=== PATIENT | female | born 1980 | race Hispanic/Latino ===

== ENCOUNTER 2016-07-18 23:42 | Emergency (ER) | payer MEDICAID ==
[2016-07-18 23:51] VITALS: TEMP 98; O2SAT 99
[2016-07-19] MEDS ORDERED: DiphenhydrAMINE 50 mg/ml Inj IM STA (00:55)
--- NOTE | 2016-07-19 00:55 | ED PDOC ---
HPI: Psych/Substance Abuse Time Seen by Provider: 07/19/16 00:07 Chief Complaint (Nursing): Alcohol Ingestion Chief Complaint (Provider): Alcohol Intoxication ED Caveat: Intoxicated History Per: EMS History/Exam Limitations: intoxication Onset/Duration Of Symptoms: Hrs Current Symptoms Are (Timing): Still Present Modifying Factor(s): Alcohol Additional Complaint(s): Jennifer James is a 36 year old female, with no pertinent past medical history, who presents to the emergency department via EMS due to alcohol intoxication. Patient appears to have slurred speech, an unsteady gait, and is only oriented to her provider. Patient currently has no medical complaints; however, the HPI/ROS are limited due to alcohol intoxication. Of note, patient is well known to this provider and emergency department for multiple, prior visits in the past. PMD: none specified Past Medical History Reviewed: Historical Data, Nursing Documentation, Vital Signs Vital Signs: Last Vital Signs Temp 98 F 07/18/16 23:48 Pulse 88 07/18/16 23:48 Resp 18 07/18/16 23:48 BP 126/68 07/18/16 23:48 Pulse Ox 99 07/18/16 23:48 - Medical History PMH: No Chronic Diseases - Surgical History Surgical History: No Surg Hx - Family History Family History: States: No Known Family Hx - Social History Alcohol: Occasional - Home Medications Home Medications: Ambulatory Orders Medication Instructions Recorded Unobtainable 01/31/15 - Allergies Allergies/Adverse Reactions: Allergies Allergy/AdvReac Type Severity Reaction Status Date / Time No Known Allergies Allergy Verified 12/13/15 23:29 Review of Systems Review Of Systems: ROS cannot be obtained secondary to pt's inabilty to answer questions. (alcohol intoxication) Physical Exam - Reviewed Nursing Documentation Reviewed: Yes Vital Signs Reviewed: Yes - Physical Exam Appears: Positive for: No Acute Distress Head Exam: Positive for: ATRAUMATIC, NORMOCEPHALIC Skin: Positive for: Normal Color, Warm, Dry Eye Exam: Positive for: Normal appearance, EOMI Neck: Positive for: Normal, Painless ROM Cardiovascular/Chest: Positive for: Regular Rate, Rhythm. Negative for: Murmur Respiratory: Positive for: Normal Breath Sounds. Negative for: Respiratory Distress Gastrointestinal/Abdominal: Positive for: Normal Exam, Soft. Negative for: Tenderness Back: Positive for: Normal Inspection. Negative for: L CVA Tenderness, R CVA Tenderness Extremity: Positive for: Normal ROM. Negative for: Tenderness, Swelling Neurologic/Psych: Positive for: Alert, Gait (unsteady), Other (slurred speech). Negative for: Oriented (only to provider) - ECG O2 Sat by Pulse Oximetry: 99 (RA) Pulse Ox Interpretation: Normal - Critical Care Total Time (In Min): 30 Medical Decision Making Medical Decision Makin:07 Initial Impression: 36 year old female, alcohol intoxication Initial Plan: * Alcohol Serum * Accucheck * Urine Drug Screen * Urine * Ativan 2 mg IM * Benadryl 50 mg IM * Haldol 5 mg IM * ED Observation * 1:1 Observation 00:27 Patient will be placed within ED Observation secondary to alcohol intoxication. Pending clinical sobriety. See ED Observation note for further updates. 00:50 Patient presents a danger to both herself and emergency department staff due to aggressive behavior. Will place patient into 4 point restraints and administer Ativan 2 mg IM and Haldol 5mg IM for relief of acute agitation. 06:15 Upon provider reevaluation patient is awake, oriented (x3), has a steady gait and clear speech, is medically stable, and requires no further treatment in the emergency department at this time. Patient will be discharged home. Counseling was provided and all questions were answered regarding diagnosis. Patient is in agreement with provider's discharge plan. Clinical Impression: Alcohol intoxication Scribe Attestation: Documented by Patrick Ann, acting as a scribe for Isidro Matamoros MD. Provider Scribe Attestation: All medical record entries made by the Scribe were at my direction and personally dictated by me. I have reviewed the chart and agree that the record accurately reflects my personal performance of the history, physical exam, medical decision making, and the department course for this patient. I have also personally directed, reviewed, and agree with the discharge instructions and disposition. ED OBSERVATION Discharge: Yes Date of observation admission: 07/19/16 Time of observation admission: 00:27 - Observation admission statement Patient is being placed in observation because:: Alcohol intoxication. - Goals of Observation Goals of observation are:: Pending clinical sobriety. Disposition - Clinical Impression Clinical Impression: Alcohol abuse with intoxication - Disposition Disposition: Routine/Home Disposition Time: 00:27 Condition: STABLE Instructions: Alcohol Intoxication (ED)
[2016-07-19 06:35] VITALS: BP 126/72; PULSE 88; RESP 20
== END 2016-07-19 06:36 | disposition home or self-care (01) ==
LOC: H.ER 23:42
DX: F10.129 Alcohol abuse with intoxication, unspecified (principal); Y90.8 Blood alcohol level of 240 mg/100 ml or more